=== PATIENT | male | born 1960 | race Hispanic/Latino ===

== ENCOUNTER 2022-06-26 07:30 | Day surgery (SDC) | payer OTHER, MEDICARE ==
[2022-06-23 10:44] LABS: BASOPHILS % (AUTO) 0.9 % (0.0-5.0); EOSINOPHILS % (AUTO) 1.6 % (0.0-8.0); HEMATOCRIT 33.9 % (42-54); LYMPHOCYTES % (AUTO) 26.1 % (21.0-51.0); MEAN CORPUSCULAR HGB CONC 32.7 g/dL (32.0-36.0); MEAN CORPUSCULAR VOLUME 91.6 fL (79-99); MONOCYTES % (AUTO) 7.8 % (3.0-13.0); NEUTROPHILS % (AUTO) 63.4 % (40.0-77.0); PLATELET COUNT (AUTO) 192 K/uL (130-400); RED CELL DISTRIBUTION WIDTH 13.1 % (11.0-15.5); WHITE BLOOD COUNT (AUTO) 5.6 K/uL (4.8-10.8)
[2022-06-23 10:54] LABS: INR 0.98 (0.85-1.15); PROTHROMBIN TIME 10.7 SEC (9.6-11.6)
[2022-06-23 10:55] LABS: CREATININE 4.2 mg/dL (0.5-1.5); POTASSIUM 4.9 mmol/L (3.5-5.1)
[2022-06-25 10:59] VITALS: BP 195/86
[~2022-06-26] VITALS: Ht 182.9 cm; Wt 94.3 kg
[2022-06-26] VITALS (17 sets, daily range): BP systolic 121–179; BP diastolic 56–78
[~2022-06-26 07:30] MED LIST: BUPIVACAINE/PF 0.25% 10ML VIAL IJ ONE; CEFAZOLIN SODIUM 2 GM VIAL IVPB SCH; LIDOCAINE HCL 1% 20 ML VIAL ONE
[2022-06-26] MEDS ORDERED: PHENYLEPHRINE HCL 10 MG/ML 1ML VIAL IV ONE (07:53)
[2022-06-26] MEDS ORDERED: 0.9% NACL 500ML IV.SOLN 500 ML IV ONE (08:00)
[2022-06-26] MEDS ORDERED: LIDOCAINE PF 100MG/5ML (2%) SYRINGE 5ML ONE (08:12)
[2022-06-26] MEDS ORDERED: FENTANYL CITRATE PF 50 MCG/1 ML 2ML VIAL ONE (08:12)
[2022-06-26] MEDS ORDERED: ROCURONIUM 10MG/1ML SYR 10 MG/ML ML ONE (08:12)
[2022-06-26] MEDS ORDERED: GLYCOPYRROLATE 1 MG/5 ML SYRINGE ONE (08:12)
[2022-06-26] MEDS ORDERED: PROPOFOL 10 MG/ML 20ML VIAL IV ONE (08:12)
[2022-06-26 08:23] LABS: POTASSIUM 3.7 mmol/L (3.5-5.1)
[2022-06-26] MEDS ORDERED: FAMO40TA7 PO (09:46)
[2022-06-26] MEDS ORDERED: PANA1CAP PO (09:46)
[2022-06-26] MEDS ORDERED: PRAV20TA4 PO (09:46)
[2022-06-26] MEDS ORDERED: AMLO-142 PO (09:46)
[2022-06-26] MEDS ORDERED: NEOSTIGMINE 5MG/5ML SYR IV ONE (10:11)
[2022-06-26] MEDS ORDERED: HYDRALAZINE 20MG/ML VIAL ONE (10:33)
[2022-06-26] MEDS ORDERED: ONDANSETRON 4MG INJ ONE (11:01)
== END 2022-06-26 13:00 ==
LOC: DAH 07:30
PROVIDERS: ATTEND Student in an Organized Health Care Education/Training Program
DX: E11.22 Type 2 diabetes mellitus with diabetic chronic kidney disease (principal); Z20.822 Contact with and (suspected) exposure to COVID-19; I12.0 Hypertensive chronic kidney disease with stage 5 chronic kidney disease or end stage renal disease; N18.6 End stage renal disease; F17.200 Nicotine dependence, unspecified, uncomplicated; I45.10 Unspecified right bundle-branch block; Z98.890 Other specified postprocedural states; Z99.2 Dependence on renal dialysis; Z88.8 Allergy status to other drugs, medicaments and biological substances; Z79.01 Long term (current) use of anticoagulants; Z79.899 Other long term (current) drug therapy
CPT/HCPCS: 80048 ×2; 85025; 85610; 85730; 86850 ×2; 86900 ×2; 86901 ×2; 87426; 36415 ×2; 71045; 93005; 36821; 82948 ×2; A6260; A4663; J7040 ×2; J3010; J3490 ×2; J2710; J2001; J0360; J2704; J2405; J1644; J2370; J0690; A6206; A4649 ×2; C1713 ×2; A4215; A4223; A4222; A4221; G0168